=== PATIENT | male | born 1980 | race American Indian/Alaskan Native ===

== ENCOUNTER 2020-07-05 23:34 | Emergency (ER) | payer SELFPAY ==
--- NOTE | 2020-07-05 23:49 | Emergency Department Report ---
ED Upper Extremity Inj HPI - General Stated Complaint: LEFT HAND LAC/SLAMMED IN DOOR Time Seen by Provider: 07/05/20 23:41 - History of Present Illness Initial Comments: 39-year-old [place] male with asthma department complaining of pain to the left fourth digit after accidentally slamming it in a car door just prior to arrival. Reports dull throbbing pain worse with palpation and range of motion. He reports bleeding which she controlled with compression afterwards. No numbness tetanus shot is up-to-date. Complaint: Injury to:: left, hand, finger -: Gradual Other Extremity Injury: Fingers: Left Other Injuries: none Handedness: right Place: home Context: direct blow, crush Associated Symptoms: denies: numbness, nausea/vomiting, heard/felt popping sensat Treatments Prior to Arrival: bandage - Related Data Previous Rx's Medication Instructions Recorded Last Taken Type amLODIPine 5 mg PO DAILY #30 tab 04/02/14 Unknown Rx Chlorhexidine Gluconate [Hibiclens] 10 ml TP BID #240 liquid 07/06/20 Unknown Rx Ketorolac [Toradol] 10 mg PO Q6H PRN #15 tablet 07/06/20 Unknown Rx cephALEXin [Keflex] 500 mg PO Q6HR #40 capsule 07/06/20 Unknown Rx Allergies Allergy/AdvReac Type Severity Reaction Status Date / Time No Known Allergies Allergy Verified 04/01/14 23:31 ED Review of Systems ROS: Stated complaint: LEFT HAND LAC/SLAMMED IN DOOR Other details as noted in HPI Comment: All other systems reviewed and negative ED Past Medical Hx - Past Medical History Hx Hypertension: Yes Hx Kidney Stones: Yes - Surgical History Additional Surgical History: Lithotripsy for kidneystones - Social History Smoking Status: Current Every Day Smoker Substance Use Type: Alcohol, Marijuana, Non Opiate Pain - Medications Home Medications: Home Medications Medication Instructions Recorded Confirmed Last Taken Type amLODIPine 5 mg PO DAILY #30 tab 04/02/14 Unknown Rx Chlorhexidine Gluconate [Hibiclens] 10 ml TP BID #240 liquid 07/06/20 Unknown Rx Ketorolac [Toradol] 10 mg PO Q6H PRN #15 tablet 07/06/20 Unknown Rx cephALEXin [Keflex] 500 mg PO Q6HR #40 capsule 07/06/20 Unknown Rx ED Physical Exam - General General appearance: alert, in no apparent distress - Head Head exam: Present: atraumatic, normocephalic - Eye Eye exam: Present: normal appearance, PERRL, EOMI Pupils: Present: normal accommodation - ENT ENT exam: Present: mucous membranes moist - Neck Neck exam: Present: normal inspection - Respiratory Respiratory exam: Present: normal lung sounds bilaterally. Absent: respiratory distress, wheezes, rales, chest wall tenderness, accessory muscle use - Cardiovascular Cardiovascular Exam: Present: regular rate, normal rhythm. Absent: systolic murmur, diastolic murmur, rubs, gallop - GI/Abdominal GI/Abdominal exam: Present: soft, normal bowel sounds - Rectal Rectal exam: Present: deferred - Extremities Exam Extremities exam: Present: normal inspection, tenderness, normal capillary refill - Expanded Upper Extremity Exam Left Shoulder Exam: Present: normal inspection Upper Arm exam: Present: normal inspection Elbow exam: Present: normal inspection Hand L/R Back: 1 - Skin tears swelling to the distal tip of the finger. No subungual hematoma. Pain with palpation. Range of motion is noted Vascular: Absent: vascular compromise - Back Exam Back exam: Present: normal inspection. Absent: CVA tenderness (R), CVA tenderness (L) - Neurological Exam Neurological exam: Present: alert, oriented X3, CN II-XII intact - Psychiatric Psychiatric exam: Present: normal affect, normal mood - Skin Skin exam: Present: warm, dry, intact, normal color. Absent: rash Critical care attestation.: If time is entered above; I have spent that time in minutes in the direct care of this critically ill patient, excluding procedure time. ED Disposition Clinical Impression: Finger contusion, Avulsion of skin of finger Disposition: TO HOME OR SELFCARE Is pt being admited?: No Does the pt Need Aspirin: No Condition: Stable Instructions: Contusion, [id number], Skin Tear, Wound Care, Adult Referrals: PRIMARY CARE,MD [Primary Care Provider] - 3-5 Days MARCELLUS BOSS MD [Staff Physician] - 3-5 Days
--- NOTE | 2020-07-06 00:44 | XRay Report ---
XR finger(s) 2+V LT INDICATION / CLINICAL INFORMATION: 4th digit crush injury COMPARISON: None available. FINDINGS: BONES / JOINT(S): No acute fracture or subluxation. SOFT TISSUES: No significant abnormality. ADDITIONAL FINDINGS: None. IMPRESSION: No acute process. Signer Name: Marc Siegel MD Signed: 07/06/2020 12:39 AM Workstation Name: [id number]
[2020-07-06 01:51] VITALS: BP 142/89
== END 2020-07-06 01:51 | disposition home or self-care (01) ==
LOC: ED 23:34
DX: S60.042A Contusion of left ring finger without damage to nail, initial encounter (principal); I10 Essential (primary) hypertension; F17.200 Nicotine dependence, unspecified, uncomplicated; F12.10 Cannabis abuse, uncomplicated; Z98.890 Other specified postprocedural states; Z79.899 Other long term (current) drug therapy; X58.XXXA Exposure to other specified factors, initial encounter; Y93.89 Activity, other specified; Y92.009 Unspecified place in unspecified non-institutional (private) residence as the place of occurrence of the external cause; Y99.8 Other external cause status

== ENCOUNTER 2021-01-27 00:22 | Emergency (ER) | payer SELFPAY | END 2021-01-27 21:00 | LOC: ED 00:22 | DX: R07.89 Other chest pain (principal); R06.02 Shortness of breath; Z53.21 Procedure and treatment not carried out due to patient leaving prior to being seen by health care provider ==